=== PATIENT | male | born 1970 | race Caucasian/White ===

== ENCOUNTER 2020-01-31 10:53 | Emergency (ER) | payer MEDICAID, SELFPAY ==
[2020-01-31 11:00] VITALS: BP 135/74; PULSE 87; RESP 18; TEMP 36.4; O2SAT 96; BMI 31.5
--- NOTE | 2020-01-31 11:03 | ED_ITS ---
HPI - Extremity Injury (Lower) General: Chief Complaint: Extremity Injury, Lower Stated Complaint: Left leg pain Time Seen by Provider: 01/31/20 11:03 Review of Systems General: Reports: 10 or more systems reviewed and unremarkable except in HPI and below PFSH ED PFSH: Social History Smoking and tobacco status: former smoker Physical Exam Const: COMMON NORMALS: no apparent distress, oriented x3, no limitations and alert GENERAL APPEARANCE: cooperative and comfortable ORIENTATION/CONSCIOUSNESS: Yes awake, Yes oriented to person, Yes oriented to place and Yes oriented to time HENMT: COMMON NORMALS: normocephalic, head/scalp atraumatic, external ears normal, EAC's normal, TM's normal bilaterally and external nose normal HEAD & SCALP: normal to inspection, normocephalic and atraumatic FACE & SINUS: normal facial exam, sinuses nontender and face symmetric NOSE: external nose normal, nares normal and no nasal discharge EXTERNAL EAR: Yes external ears normal EXTERNAL AUDITORY CANAL: EAC's normal TYMPANIC MEMBRANE: TM's normal bilaterally MOUTH: oral and palatal mucosa normal, lip normal and tongue normal THROAT: posterior oropharynx normal, tonsils normal and uvula midline Eye: COMMON NORMALS: PERRL, EOMs intact bilaterally and conjunctivae normal GENERAL EYE: normal appearance of both eyes and normal light reflex EYELID: eyelids normal CONJUNCTIVA: Yes conjunctivae normal PUPIL: Yes PERRL EOM: Yes EOM abnormal DIRECT OPHTHALMOSCOPY: Yes normal light reflex Neck/C-Spine: COMMON NORMALS: full ROM, no lymphadenopathy, supple, no meningeal signs, no JVD and thyroid normal GENERAL: Yes normal visual inspection THYROID: thyroid normal CERVICAL SPINE: Yes cervical ROM normal and Yes normal cervical lordosis Lymph: LYMPHATIC: no lymphadenopathy noted Chest: COMMONS NORMALS: inspection of chest normal and palpation of chest normal Resp: COMMON NORMALS: normal respiratory effort, no retractions and clear to auscultation bilaterally AUSCULTATION: clear to auscultation bilaterally Cardio: COMMON NORMALS: no JVD, regular rate, regular rhythm, S1 normal heart sound, S2 normal heart sound, no gallops, no clicks, no murmurs, no rub and peripheral pulses 2+ throughout RATE: regular rate RHYTHM: regular rhythm HEART SOUNDS: S1 normal and S2 normal PERIPHERAL PULSES: pulses 2+ throughout GI: COMMON NORMALS: normal to inspection, nondistended, normoactive bowel sounds, soft to palpation, non-tender and no masses PALPATION: Yes soft : COMMON NORMALS: Yes no CVA tenderness BLADDER/KIDNEY EXAM: Yes no CVA tenderness Back/Pelvis: COMMON NORMALS: no CVA tenderness, thoracic and lumbar spine normal to inspection, no thoracic nor lumbar tenderness and thoraco-lumbar ROM normal Extremity: COMMON NORMALS: normal to inspection, full ROM, normal capillary refill, no joint enlargement, no clubbing, cyanosis or edema, no calf tenderness and no pedal edema GENERAL: Yes normal exam except as noted LEFT LOWER EXTREMITY: Yes knee joint EXTREMITY IMAGE (FRONT): 1. Neuro: COMMON NORMALS: oriented x3, moves all extremities, no focal motor deficits, no sensory deficits noted and gait normal SENSORIUM/ORIENTATION: Yes alert, Yes oriented to person, Yes oriented to place and Yes oriented to time MENINGEAL SIGNS: Yes no meningeal signs Psych: COMMON NORMALS: mental status grossly normal, thought process normal, cooperative, affect normal, speech normal and activity/motor behavior normal SPEECH: Yes normal speech THOUGHT PROCESS: normal thought process Skin: COMMON NORMALS: no rashes or lesions noted, no wounds and skin turgor normal GENERAL SKIN EXAM: no rashes or lesions noted and turgor normal Course ED course: No trauma to left leg. Repeats that his leg feels unstable. Negative drawer test. Laxity noted on medial and lateral aspect of knee. Will order MRI as outpatient and proceed with DC. Vital Signs: Vital signs: Vital Signs Temperature 97.6 F 01/31/20 11:00 Pulse Rate 87 01/31/20 11:00 Respiratory Rate 18 01/31/20 11:00 Blood Pressure 135/74 01/31/20 11:00 Pulse Oximetry 96 01/31/20 11:00 Discharge Plan Discharge Patient Disposition: Home, Self-Care Clinical Impression: ACL laxity, MCL deficiency, knee Condition: Stable Prescriptions: New IBU 800 mg tablet 800 mg PO Q8H Qty: 20 RF: 0 cyclobenzaprine 10 mg tablet 10 mg PO BID Qty: 10 RF: 0 Discharge Diet: Usual diet Discharge Activity: Limit activity as instructed Activity Restrictions/Additional Instructions: Follow up MRI to be scheduled. Use knee immobilizer and crutches until released per PCP. Coding Level of Care Code ED Student Activities Director for Chg Fwd Exam Comprehensive
--- NOTE | 2020-01-31 11:09 | PC.NURSE ---
Patient reports that he has had left knee pain the last couple weeks. Patient states the pain has got worse the past couple days. Patient denies any new injury to the leg.
[2020-01-31] MEDS: acetaminophen-codeine 300-30mg Tablet 1 TAB PO (11:51)
[2020-01-31] MEDS: orphenadrine 30 mg/mL Inj 2 mL 60 MG IM (11:52)
--- NOTE | 2020-01-31 11:52 | W.ED.EXTPRO ---
HPI - Extremity Problem General: Chief complaint: Extremity Injury, Lower Stated complaint: Left leg pain Time Seen by Provider: 01/31/20 11:03 [facility]LY [facility], [facility] ED PFSH: Social History Smoking and tobacco status: former smoker Course Vital Signs: Vital signs: Vital Signs Temperature 97.6 F 01/31/20 11:00 Pulse Rate 87 01/31/20 11:00 Respiratory Rate 18 01/31/20 11:00 Blood Pressure 135/74 01/31/20 11:00 Pulse Oximetry 96 01/31/20 11:00 Discharge Plan Discharge Patient Disposition: Home, Self-Care Clinical Impression: ACL laxity, MCL deficiency, knee Condition: Stable Prescriptions: New IBU 800 mg tablet 800 mg PO Q8H Qty: 20 RF: 0 cyclobenzaprine 10 mg tablet 10 mg PO BID Qty: 10 RF: 0 Discharge Diet: Usual diet Discharge Activity: Limit activity as instructed Activity Restrictions/Additional Instructions: Follow up MRI to be scheduled. Use knee immobilizer and crutches until released per PCP. Coding Level of Care Code ED Golf Club Repairer for Kylah Irvin
[2020-01-31 12:19] VITALS: BP 122/81; PULSE 82; RESP 16; O2SAT 96
--- NOTE | 2020-02-03 09:58 | DCPLANNER ---
manager nicu had message to schedule an outpatient MRI for patient. manager nicu called patient to confirm that patient wanted to have the MRI ordered, and to confirm who patient sees for primary care, so that I could have results sent to the primary care. manager nicu called , a recording stated, the number you have dialed is no longer in service. manager nicu will wait to hear if patient calls case specialist about scheduling an MRI.
== END 2020-01-31 12:20 | disposition home or self-care (01) ==
LOC: ER 12:13
PROVIDERS: Emergency Provider Nurse Practitioner Family
DX: M23.8X2 Other internal derangements of left knee (principal); Z87.891 Personal history of nicotine dependence
CPT/HCPCS: 12345; 29530; 96372; 99283; E0114; J2360

== ENCOUNTER 2020-06-17 09:22 | Emergency (ER) | payer MEDICARE, MEDICAID, SELFPAY ==
[2020-06-17 09:24] VITALS: BP 123/74; PULSE 81; RESP 17; TEMP 36.7; O2SAT 96; BMI 35.9
--- NOTE | 2020-06-17 09:28 | W.ED.PSYCH ---
HPI - Psych General: Chief Complaint: Psychiatric Symptoms Stated Complaint: OUT OF PSYCH MEDS Time Seen by Provider: 06/17/20 09:27 Source: patient Mode of arrival: EMS Limitations: no limitations History of Present Illness: HPI Narrative: Patient is a 49-year-old male who presents to ED today after EMS picked him up from [facility] and brought him here for evaluation. Patient tells me that police were called to [facility] because he was telling a [facility] associate that he did not feel safe walking home. Patient tells me he feels like people are trying to run over him. After speaking to patient extensively he appears very paranoid. He often speaks about wishing to talk to the FBI about a missing person and [place]. He also states he has information on individuals and [place] that have committed arson to a historical site and states that if he does not file a report than he is harboring information. Patient does have a psychiatric history stating he has been hospitalized in [place] several times. He states he recently is ran out of his Olanzapine and Depakote. He cannot tell me why he takes these medications. Patient states he resides in a housing authority residential facility in [place]. He tells me he is his own guardian. He states he is not suicidal or homicidal. History of same: Yes Relieving factors: none Exacerbating factors: medication (ran out of medications ) Associated symptoms: Deny auditory hallucinations, visual hallucinations, depression, homicidal ideation or suicidal ideation Review of Systems Const: Denies: fever(s) or chills Card: Denies: chest pain, palpitations, lightheadedness or syncope Resp: Denies: dyspnea GI: Denies: abdominal pain, nausea, vomiting or diarrhea Musc: Denies: neck pain, back pain, extremity pain, extremity swelling or joint pain Skin/Breast: Denies: rash Neuro: Denies: headache(s) Psych: Reports: paranoia; Denies: anxiety, depression, mood swings, panic attacks, hopelessness, visual hallucinations, auditory hallucinations, suicidal ideation or homicidal ideation [facility]MERLY [facility] ED PFSH: Medical History (Updated 06/17/20 @ 11:39 by DEVAUGHN Castillo) Infected dental caries Left lateral knee pain Social History Smoking and tobacco status: former smoker Alcohol intake: former Physical Exam Const: COMMON NORMALS: no acute distress, patient oriented x3, alert and well nourished GENERAL APPEARANCE: cooperative and well kempt ORIENTATION/CONSCIOUSNESS: Yes oriented to person, Yes oriented to place and Yes oriented to time Resp: COMMON NORMALS: normal respiratory effort and clear to auscultation bilaterally AUSCULTATION: clear to auscultation bilaterally Cardio: COMMON NORMALS: regular rate and regular rhythm RATE: regular rate RHYTHM: regular rhythm Neuro: MARITZA COMA SCALE: document GCS findings Maritza coma scale eye opening: Spontaneous Maritza coma scale verbal response: Orientated Saxton coma scale motor response: Obey commands Saxton coma scale total score: 15 COMMON NORMALS: patient oriented x3, CN's II-XII intact bilaterally, moves all extremities, no focal motor deficits, no sensory deficits noted and gait normal SENSORIUM/ORIENTATION: Yes alert, Yes oriented to person, Yes oriented to place and Yes oriented to time Psych: COMMON NORMALS: mental status grossly normal, cooperative, normal affect, speech normal, activity/motor behavior normal, denies hallucinations, denies homicidal ideation and denies suicidal ideation APPEARANCE: Yes grossly normal and Yes well kempt ATTITUDE: Yes calm ACTIVITY/MOTOR BEHAVIOR: Yes appropriate eye contact and No psychomotor agitation SPEECH: Yes normal speech MOOD & AFFECT: Yes euthymic mood ATTENTION/CONCENTRATION: Yes attention grossly intact and Yes concentration grossly intact MEMORY/COGNITION: Yes memory grossly intact and Yes cognition grossly intact INSIGHT: Fair insight present (Psych) JUDGEMENT: Fair judgement present (Psych) Skin: COMMON NORMALS: no rashes or lesions noted GENERAL SKIN EXAM: no rashes or lesions noted MDM - Psych MDM Narrative: Medical decision making narrative: Dr. Hardin has evaluated patient in the emergency department. Please refer to his specific note for evaluation. Dr. Hardin feels patient is stable for discharge at this time. He does recommend going ahead and placing patient back on his Depakote at a normal dose of 500 mg twice daily, start him back on the doxepin at 25 mg and titrate back up to 100 mg daily, and start him back on the olanzapine at 10 mg x 1 week and then increase to his normal 20 mg daily. Lab Data: Labs: Lab Results 06/17/20 06/17/20 06/17/20 Range/Units 10:22 10:22 10:47 WBC 7.6 (4.0-10.0) 10^3/ uL RBC 4.88 (4.1-5.3) 10^6/u L Hgb 14.7 (11.7-16.6) g/dL Hct 45.7 (42.0-52.0) % MCV 93.6 (80-94) fL MCH 30.1 (28.0-34.0) pg MCHC 32.2 (30.0-36.0) g/dL RDW 13.2 (12.1-15.1) % Plt Count 255 (130-400) 10^3/c mm MPV 9.7 (7.4-10.4) fL Neut % (Auto) 65.4 % Lymph % (Auto) 20.5 % Iron % (Auto) 8.2 % Eos % (Auto) 4.1 % Baso % (Auto) 0.9 % Neut # (Auto) 4.97 (1.8-7.7) 10^3/u L Lymph # (Auto) 1.6 (0.8-4.8) 10^3/u L Iron # (Auto) 0.6 (0.2-0.9) 10^3/u L Eos # (Auto) 0.3 (0.0-0.8) 10^3/u L Baso # (Auto) 0.1 (0.0-0.1) 10^3/u L Nucleated RBC % (a uto) 0 % Nucleated RBCs # 0.0 /100WBC Sodium 139 (136-145) mmol/L Potassium 4.2 (3.5-5.1) mmol/L Chloride 105 (98-107) mmol/L Carbon Dioxide 25 (22-29) mmol/L Anion Gap 13.2 (5-19) BUN 10 (6-20) mg/dL Creatinine 0.7 (0.7-1.2) mg/dL GFR Calculation 119.4 (90-130) mL/min Glucose 110 (65-115) mg/dL Calculated Osmolal ity 285 (285-295) mOsm/k g Calcium 9.1 (8.5-10.5) mg/dL Total Bilirubin 0.2 (0.15-1.2) mg/dL AST 27 (0-40) U/L ALT 36 (0-41) U/L Alkaline Phosphata se 103 (40-130) IU/L Total Protein 6.9 (6.6-8.7) g/dL Albumin 4.0 (3.5-5.2) g/dL Globulin 2.9 (1.3-4.6) g/dL Salicylates < 0.3 L (3-10) mg/dL Urine Opiates Scre en Negative (Negative) ng/mL Acetaminophen < 5.0 L (10-30) ug/mL Ur Barbiturates Sc reen Negative (Negative) ng/mL Ur Phencyclidine S crn Negative (Negative) ng/mL Ur Amphetamines Sc reen Positive H (Negative) ng/mL U Benzodiazepines Scrn Negative (Negative) ng/mL Urine Cocaine Scre en Negative (Negative) ng/mL U Marijuana (THC) Screen Negative (Negative) ng/mL Ethyl Alcohol < 10 (0-10) mg/dL Discharge Plan Discharge Patient Disposition: Home, Self-Care Clinical Impression: Medication refill, Paranoia, Methamphetamine use Condition: Stable Prescriptions: New doxepin 25 mg capsule 25 mg PO DAILY Qty: 105 RF: 0 Continued Depakote 500 mg Tablet,Delayed Release (Dr/Ec) 500 mg PO BID Qty: 60 RF: 0 olanzapine 10 mg Tablet 20 mg PO BEDTIME Qty: 60 RF: 0 Discontinued olanzapine 10 mg Tablet 20 mg PO BEDTIME RF: 0 doxepin 100 mg Capsule 100 mg PO DAILY RF: 0 No Action efinaconazole 10 % solution with applicator 1 applic TOPICAL DAILY 336 Days Qty: 8 RF: 2 levocetirizine 5 mg tablet 5 mg PO DAILY Qty: 30 RF: 2 Discharge Orders: Discharge Order (Routine); Ordered 06/17/20 Ordered By: Quni Pope Activity Restrictions/Additional Instructions: Please followup as soon as possible with your medication provider for further instructions and to ensure you have medications following what has been prescribed to you today. Coding Level of Care Code ED Supervising Deputy for Kylah Fwd Exam Detailed
[2020-06-17 09:46] VITALS: BP 124/73; RESP 16; O2SAT 96
[2020-06-17 10:28] LABS: Basophils # 0.1 10^3/uL (0.0-0.1); Basophils % 0.9 %; Eosinophils # 0.3 10^3/uL (0.0-0.8); Eosinophils % 4.1 %; Hematocrit 45.7 % (42.0-52.0); Hemoglobin 14.7 g/dL (11.7-16.6); Lymphocytes # 1.6 10^3/uL (0.8-4.8); Lymphocytes % 20.5 %; Mean Corpuscular HGB Conc 32.2 g/dL (30.0-36.0); Mean Corpuscular Hemoglobin 30.1 pg (28.0-34.0); Mean Corpuscular Volume 93.6 fL (80-94); Mean Platelet Volume 9.7 fL (7.4-10.4); Monocytes # 0.6 10^3/uL (0.2-0.9); Monocytes % 8.2 %; Neutrophils # 4.97 10^3/uL (1.8-7.7); Neutrophils % 65.4 %; Nucleated Red Blood Cells % 0 %; Platelet Count 255 10^3/cmm (130-400); Red Blood Count 4.88 10^6/uL (4.1-5.3); Red Cell Distribution Width 13.2 % (12.1-15.1); White Blood Count 7.6 10^3/uL (4.0-10.0)
[2020-06-17 10:42] LABS: Alanine Aminotransferase 36 U/L (0-41); Alkaline Phosphatase 103 IU/L (40-130); Anion Gap 13.2 (5-19); Aspartate Amino Transferase 27 U/L (0-40); Blood Urea Nitrogen 10 mg/dL (6-20); Calcium 9.1 mg/dL (8.5-10.5); Carbon Dioxide 25 mmol/L (22-29); Chloride 105 mmol/L (98-107); Globulin 2.9 g/dL (1.3-4.6); Glomerular Filtration Rate 119.4 mL/min (90-130); Glucose 110 mg/dL (65-115); Osmolality Calculated 285 mOsm/kg (285-295); Potassium 4.2 mmol/L (3.5-5.1); Sodium 139 mmol/L (136-145); Total Bilirubin 0.2 mg/dL (0.15-1.2); Total Protein 6.9 g/dL (6.6-8.7)
[2020-06-17 10:44] LABS: Acetaminophen < 5.0 ug/mL (10-30); Alcohol Level < 10 mg/dL (0-10); Salicylate < 0.3 mg/dL (3-10)
[2020-06-17 11:16] LABS: Amphetamines Screen Urine Positive (Negative); Barbiturates Screen Urine Negative (Negative); Benzodiazepines Screen Urine Negative (Negative); Cocaine Screen Urine Negative (Negative); Opiate Screen Urine Negative (Negative); PCP Screen Urine Negative (Negative); THC Screen Urine Negative (Negative)
[2020-06-17 11:27] VITALS: BP 143/77; PULSE 80; O2SAT 96
--- NOTE | 2020-06-17 15:28 | DCPLANNER ---
assistant operations manager was asked to arrange for transportation for patient for a discharge. assistant operations manager called and arranged transportation.
== END 2020-06-17 11:27 | disposition home or self-care (01) ==
PROVIDERS: Emergency Provider Physician Assistant
DX: Z76.0 Encounter for issue of repeat prescription (principal); F22 Delusional disorders; F15.90 Other stimulant use, unspecified, uncomplicated; Z87.891 Personal history of nicotine dependence; Z79.899 Other long term (current) drug therapy
CPT/HCPCS: 12345; 36415; 80053; 80306; 80307; 85025; 99284

== ENCOUNTER 2020-07-03 08:42 | Outpatient (CLI) | payer MEDICARE, MEDICAID, SELFPAY ==
--- NOTE | 2020-07-03 09:15 | FL_ITS ---
WS: [id number] ESOPHAGRAM WITH FLUOROSCOPY HISTORY: K21.9 Gastro-esophageal reflux disease without esophagitis COMPARISON: None available. FLUOROSCOPY TIME: 1.5 minutes. Tree Farmer radiograph: Mild straightening and degenerative changes in the cervical spine. Esophagus and swallowing function: Patient swallowed the barium mixture without difficulty. There is very mild narrowing of the distal esophagus. Minimal delay in propulsion of the barium tablet. No ref lux was demonstrated on this examination. No mucosal defects in the esophagus. Gastroesophageal reflux: None. Hiatal hernia: No hiatal hernia. FL/FL barium swallow gastro [id number] IMPRESSION: 1. Very minimal narrowing of the distal esophagus. 2. No reflux demonstrated on this examination.
== END 2020-07-03 08:43 | disposition home or self-care (01) ==
PROVIDERS: Visit Provider Emergency Medicine
DX: K21.9 Gastro-esophageal reflux disease without esophagitis (principal)
CPT/HCPCS: 74220

== ENCOUNTER 2020-11-16 06:03 | Emergency (ER) | payer MEDICARE, MEDICAID, SELFPAY ==
[2020-11-16 06:04] VITALS: BP 163/104; PULSE 76; RESP 18; TEMP 36.8; O2SAT 97; BMI 36.2
--- NOTE | 2020-11-16 06:18 | W.ED.DENTAL ---
HPI - Dental/Oral General: Chief complaint: Dental/Oral Stated complaint: left sided face swelling Time Seen by Provider: 11/16/20 06:18 History of Present Illness: HPI Narrative: 50-year-old male who was seen 2 to 3 weeks ago by his dentist evidently he was supposed to have multiple teeth extractions for several caries and he was started on oral antibiotics but never had them filled. He has some swelling in the left lower jaw and discomfort now. He still has not started antibiotics denies any fever no difficulty breathing or swallowing. MD Complaint: tooth pain Teeth map: 1. Onset (ago): day(s) Duration: constant Severity: moderate Relieving factors: nothing Exacerbating factors: chewing and cold Context: history of dental caries and poor dental care Associated symptoms: Reports gum swelling; Denies ear or mastoid pain, fever(s), odynophagia, sore throat or tongue swelling Treatment prior to arrival: none Review of Systems Const: Denies: fever(s) ENMT: Denies: odynophagia or ear or mastoid pain Card: Denies: chest pain, edema, dyspnea on exertion or orthopnea Resp: Denies: dyspnea, productive cough or non-productive cough GI: Denies: abdominal pain, nausea, vomiting, hematemesis, coffee ground emesis, diarrhea, constipation, bloating, hematochezia or melena All/Imm: Denies: tongue swelling PFSH ED PFSH: Medical History (Updated 11/16/20 @ 06:20 by Elie Ross DO) Hiatal hernia with gastroesophageal reflux Infected dental caries Left lateral knee pain Social History Smoking and tobacco status: former smoker Alcohol intake: former Physical Exam Const: COMMON NORMALS: no acute distress GENERAL APPEARANCE: cooperative and comfortable ORIENTATION/CONSCIOUSNESS: Yes awake, Yes oriented to person, Yes oriented to place and Yes oriented to time HENMT: COMMON NORMALS: normocephalic, atraumatic and hearing grossly normal bilaterally HEAD & SCALP: normocephalic and atraumatic OTHER: Swelling along the premolars but no obvious abscess no sign of purulent drainage. Neck/C-Spine: COMMON NORMALS: no JVD OTHER: There is some swelling along the left mid mandible. I cannot palpate any lymphadenopathy there is no swelling or pain around the neck around the trachea or in the submandibular space. Lymph: LYMPHATIC: no lymphadenopathy noted and no lymphedema noted Resp: COMMON NORMALS: normal respiratory effort, No retractions, No use of accessory muscles and clear to auscultation bilaterally AUSCULTATION: clear to auscultation bilaterally Cardio: COMMON NORMALS: no JVD, regular rate, regular rhythm and No murmurs present (Cardio) RATE: regular rate RHYTHM: regular rhythm Neuro: SENSORIUM/ORIENTATION: Yes oriented to person, Yes oriented to place and Yes oriented to time Skin: COMMON NORMALS: no rashes or lesions noted GENERAL SKIN EXAM: no rashes or lesions noted Course Vital Signs: Vital signs: Vital Signs Temperature 98.2 F 11/16/20 06:04 Pulse Rate 76 11/16/20 06:04 Respiratory Rate 18 11/16/20 06:04 Blood Pressure 163/104 11/16/20 06:04 Pulse Oximetry 97 11/16/20 06:04 MDM - Dental/Oral MDM Narrative: Medical decision making narrative: First dose of oral Augmentin and oral pain medication and IM Toradol given here in the emergency room discharge home with Augmentin and hydrocodone follow-up with his dentist as soon as he is able room temperature liquid diet for the next 2 days. Discharge Plan Discharge Patient Disposition: Home Clinical Impression: Infected dental caries Condition: Stable Prescriptions: New Augmentin 875-125 mg tablet 1 tab PO BID 10 Days Qty: 20 RF: 0 hydrocodone-acetaminophen 5-325 mg tablet 1 tab PO Q6H PRN (Reason: pain) Qty: 10 RF: 0 No Action efinaconazole 10 % solution with applicator 1 applic TOPICAL DAILY 336 Days Qty: 8 RF: 2 levocetirizine 5 mg tablet 5 mg PO DAILY Qty: 30 RF: 2 terbinafine HCl 250 mg tablet 250 mg PO QDAY 7 Days Qty: 7 RF: 0 terbinafine HCl [Antifungal (terbinafine)] 1 % cream 1 applic TOPICAL BID 21 Days Qty: 30 RF: 0 doxepin 25 mg capsule 25 mg PO DAILY Qty: 105 RF: 0 Depakote 500 mg Tablet,Delayed Release (Dr/Ec) 500 mg PO BID Qty: 60 RF: 0 olanzapine 10 mg Tablet 20 mg PO BEDTIME Qty: 60 RF: 0 Discharge Orders: Discharge ED (Routine); Ordered 11/16/20 Ordered By: Elie Ross Activity Restrictions/Additional Instructions: Follow-up with your dentist as soon as you are able Coding Level of Care Code ED Temperature Regulator Pyrometer for Kylah Irvin
[2020-11-16] MEDS: amoxicillin-clav 875-125 mg Tablet 1 TAB PO (06:34)
[2020-11-16] MEDS: ketorolac 60 mg/2 mL INJ IM (06:35)
[2020-11-16] MEDS: HYDROcodone-acetaminophen 5-325 mg Tablet 1 TAB PO (06:36)
[2020-11-16 06:37] VITALS: BP 163/99; PULSE 77; RESP 16; O2SAT 95
== END 2020-11-16 06:39 | disposition home or self-care (01) ==
PROVIDERS: Emergency Provider Family Medicine
DX: K02.9 Dental caries, unspecified (principal); Z87.891 Personal history of nicotine dependence
CPT/HCPCS: 12345; 96372; 99281; 99283; J1885